=== PATIENT | male | born 1985 | race Caucasian/White ===

== ENCOUNTER → 2024-02-10 | Outpatient (CLI) | payer BC, SELFPAY ==
--- NOTE | 2024-02-10 09:12 | XR_ITS ---
Examination: Pelvic ultrasound, transabdominal, complete Technique: Transabdominal ultrasound of the pelvis performed using grayscale imaging Date and time of exam: February 10, 2024 0949 hours INDICATIONS: Onset pelvic pain beginning 5 days ago FINDINGS: No solid pelvic mass Prostate 2.5 x 3.1 x 3.4 cm volume 14 cc prostate calcification 7 mm no prostate nodules IMPRESSION: Negative for prostatomegaly Negative for prostate nodules
--- NOTE | 2024-02-10 09:12 | XR_ITS ---
Examination: Abdomen sonogram, complete Date and time of exam: February 10, 2024 0939 hours INDICATIONS: Right upper abdominal pain pelvic pain beginning 5 days ago. Technique: Multiple real-time grayscale transabdominal sonographic images of the abdomen have been obtained. Findings: Normal gallbladder Normal common bile duct 0.2 cm Pancreatic head 2.3 cm Aorta not enlarged Liver 14.1 cm smooth contour Normal hepatopedal portal venous flow Patent IVC Right kidney 11.7 x 5.8 x 5.5 cm cortex 1.6 cm Left kidney 10.4 x 6.1 x 5.2 cm cortex 1.3 cm Mild renal parenchymal scar formation No hydronephrosis Spleen 13.4 cm IMPRESSION: Normal gallbladder Liver normal size Mild bilateral renal parenchymal scar formation Mild splenomegaly
[2024-02-10 11:02] LABS: Basophils % (Auto) 0 % (0-2.5); Eosinophils # (Auto) 0.1 Thou/mm3 (0.0-0.5); Eosinophils % (Auto) 1 % (0-10); Hematocrit 51.8 % (41.0-53.0); Hemoglobin 17.9 g/dL (13.5-16.0); Immature Granulocytes % (Auto) 0 % (0-0); Immature Granulocytes Auto 0.02 Thou/mm3 (0.00-0.00); Lymphocytes # (Auto) 1.7 Thou/mm3 (1.0-4.8); Lymphocytes % (Auto) 31 % (10-50); Mean Corpuscular HGB Conc 34.6 g/dl (31.0-37.0); Mean Corpuscular Hemoglobin 29.3 pg (25.0-35.0); Mean Corpuscular Volume 85 fL (80-100); Monocytes # (Auto) 0.7 Thou/mm3 (0.0-0.8); Monocytes % (Auto) 12 % (0-12); Neutrophils # (Auto) 2.9 Thou/mm3 (1.8-7.7); Neutrophils % (Auto) 55 % (37-80); Nucleated Red Blood Cell % 0 /100 WBC (0); Platelet Count 189 Thou/mm3 (140-440); RDW Standard Deviation 38.2 fL (35.1-43.9); Red Blood Count 6.11 Miln/mm3 (4.50-5.90); White Blood Count 5.4 Thou/mm3 (3.8-10.6)
[2024-02-10 11:12] LABS: Alanine Aminotransferase 32 U/L (10-49); Albumin, Serum 4.7 gm/dL (3.5-5.0); Alkaline Phosphatase 66 U/L (46-116); Amylase 74 U/L (30-118); Anion Gap 4 (7-16); Aspartate Amino Transferase 28 U/L (0-34); BUN/Creatinine Ratio 12 Ratio (12-20); Bilirubin,Total 0.9 mg/dL (0.3-1.2); Blood Urea Nitrogen 14 mg/dL (9-23); Calcium 9.8 mg/dL (8.3-10.6); Calcium (Corrected) 9.8 mg/dL (8.5-10.1); Carbon Dioxide 28.9 mMol/L (20.0-31.0); Chloride 104 mMol/L (98-107); Creatinine (Component) 1.2 mg/dL (0.6-1.3); Globulin 2.3 gm/dL (2.3-3.5); Glucose 86 mg/dL (74-106); Lipase 29 U/L (12-53); Osmolality,Calculated 273 (275-295); Sodium 137 mMol/L (136-145); eGFR > 60 See Note
== END | disposition home or self-care (01) ==
LOC: CDIM 09:06 → COPL 10:00
PROVIDERS: PCP Nurse Practitioner Family; Referring Provider Nurse Practitioner Family; Visit Provider Radiology Diagnostic Radiology
DX: N28.89 Other specified disorders of kidney and ureter (principal); R16.1 Splenomegaly, not elsewhere classified; R10.10 Upper abdominal pain, unspecified
CPT/HCPCS: 36415; 76700; 76856; 80053; 82150; 83690; 85025